=== PATIENT | male | born 1985 | race Caucasian/White ===

== ENCOUNTER 2016-05-30 10:27 | Emergency (ER) | payer OTHER ==
[2016-05-30 10:35] VITALS: RESP 16
[2016-05-30 11:56] LABS: COLOR YELLOW; LEUKOCYTE ESTERASE,URINE NEGATIVE (NEGATIVE); NITRITE,URINE NEGATIVE (NEGATIVE)
--- NOTE | 2016-05-30 11:57 | EDPHY ---
H & P Stated Complaint: swollen/pain testicle since sat. left side. Time Seen by Provider: 05/30/16 10:53 HPI/ROS: CHIEF COMPLAINT: Left testicular pain and swelling HISTORY OF PRESENT ILLNESS: This is a healthy 30-year-old male who presents with 3 and half days of left testicular pain. This began while skiing but he denies trauma. He had subjective fever on the day that the pain began. He also noticed that the left testicle was red and somewhat swollen. He took ibuprofen and felt better over the next 2 days. However, today the pain returned. Swelling and redness seems to have worsened. He denies dysuria, hematuria, urinary urgency and urinary frequency. He has not had back back or flank pain. No vomiting or diarrhea. He has no history of STD or HIV. He has had anal intercourse but no unprotected intercourse. REVIEW OF SYSTEMS: A ten point review of systems was performed and is negative with the exception of the items mentioned in the HPI. Source: Patient Exam Limitations: No limitations - Personal History Current Tetanus/Diphtheria Vaccine: Yes Current Tetanus Diphtheria and Acellular Pertussis (TDAP): Yes - Medical/Surgical History Hx Asthma: No Hx Chronic Respiratory Disease: No Hx Diabetes: No Hx Cardiac Disease: No Hx Renal Disease: No Hx Cirrhosis: No Hx Alcoholism: No Hx HIV/AIDS: No Hx Splenectomy or Spleen Trauma: No Other PMH: PMH: Lyme disease. PSH: hand tendon surgery, and fx - Social History Additional Social History: He works for [employer]. - Physical Exam Exam: General Appearance: Alert. Vital signs reviewed. Blood pressure 151/84. Eyes: Pupils equal and round, no conjunctival injection, no discharge. Anicteric. ENT, Mouth: Mucous membranes are moist, no oropharyngeal erythema or edema. Neck: No lymphadenopathy, supple. Respiratory: Lungs are clear to auscultation; no wheezes, rales, or rhonchi. Cardiovascular: Regular rate and rhythm; no murmur, rub, or gallop. Gastrointestinal: Abdomen is soft and nontender, no masses or organomegaly, bowel sounds normal. Genitalia: Normal circumcised male. No penile discharge or lesions. Left testicle is enlarged. The left epididymis is enlarged and somewhat tender to palpation. Right testicle is normal in size and without tenderness. No warmth of scrotal skin. Skin: Warm and dry, no rashes on exposed skin, normal color. Back: No CVAT. Neurological: Alert and oriented. Moving all four extremities easily and equally.. Psychiatric: Normal affect. Constitutional: Initial Vital Signs Temperature (C) 36.4 C 05/30/16 10:30 Heart Rate 97 05/30/16 10:30 Respiratory Rate 16 05/30/16 10:30 Blood Pressure 151/84 H 05/30/16 10:30 O2 Sat (%) 97 05/30/16 10:30 O2 Delivery Mode Room Air Allergies/Adverse Reactions: No Known Allergies Allergy (Unverified 05/30/16 10:30) Home Medications: Medication Instructions Recorded Doxycycline Hyclate [Doxycycline] 100 mg PO BID #13 cap 05/30/16 Medical Decision Making - Diagnostics Imaging: Testicular ultrasound reported to me by Dr. Trent Jon. Describes left epididymis measuring 5 cm x 2.5 cm with increased blood flow to the epididymis. Ultrasound findings are consistent with epididymitis, possibly orchitis. There is no drainable abscess and no mass. ED Course/Re-evaluation: Ultrasound indicates left epididymitis, possibly orchitis. Urine is negative for urinary tract infection. I am treating him with doxycycline and IM ceftriaxone with the thought that this will treat epididymitis/STD. Urine for GC and chlamydia sent. He is nontoxic appearing. Differential Diagnosis: I considered a differential diagnosis that includes but is not limited to epididymitis, orchitis, scrotal abscess, testicular torsion, testicular malignancy, and UTI. - Data Points Medications Given: Discontinued Medications Ceftriaxone Sodium (Rocephin Im Syringe) 250 mg IM EDNOW ONE PRN Reason: Protocol Stop: 05/30/16 12:37 Last Admin: 05/30/16 13:14 Dose: 250 mg Doxycycline Hyclate (Doxycycline Hyclate) 100 mg PO EDNOW ONE PRN Reason: Protocol Stop: 05/30/16 12:37 Last Admin: 05/30/16 12:45 Dose: 100 mg Departure - Departure Disposition: Home, Routine, Self-Care Clinical Impression: Epididymitis Condition: Good Instructions: Epididymo-Orchitis (ED) Additional Instructions: Try to elevate and support your scrotum whenever possible. Take the doxycycline twice daily until gone. The antibiotics that you are receiving will treat epididymitis and STD (if needed). Referrals: Nilson Basilio MD [Medical Doctor] - As per Instructions Anabela Moran MD [Medical Doctor] - As per Instructions Prescriptions: Doxycycline Hyclate [Doxycycline] 100 mg PO BID #13 cap
--- NOTE | 2016-05-30 11:57 | US ---
Testicular Sonogram Clinical Indications: Swollen painful enlarged left scrotal mass. Technique: Scrotal contents were imaged with the high-resolution transducer. Color and pulsed Doppl er/duplex were recorded on each side. Findings: Right testis measures 4.5 x 3.4 x 2.8 cm and left testis measures 4.8 x 4 x 2.[address] stes are homogeneous in echogenicity without intratesticular masses. Duplex/Doppler signals demonstra te abnormal increased vascular flow to a heterogenous and enlarged left epididymis measuring at least 5 x 2.5 cm, consistent with left epididymitis. Slight increased vascular flow to the left testes, hawley ggesting mild left orchitis. No definite hydrocele or varicocele. Impression: 1. Left epididymitis with heterogenous enlarged hypervascular left epididymis measuring at least 5 x 2.5 cm. 2. Mild increased flow to the left testes may represent mild left orchitis. 3. No drainable abscess. Findings and recommendations discussed with Emergency Department physician, Dr. Eli Arechiga, at 114 0 hours today. Final report concurs with initial preliminary interpretation.
[2016-05-30] MEDS ORDERED: CEFTRIAXONE IM 350 MG/ML SYRINGE IM ONE (12:36)
[2016-05-30] MEDS ORDERED: DOXYCYCLINE HYCLATE 100 MG CAP/TAB PO ONE (12:36)
[2016-05-30 13:38] VITALS: BP 134/86; PULSE 90; TEMP 97.7; O2SAT 98
[2016-06-01 08:24] LABS: CHLAMYDIA AMPLIFICATION GENPRB NEGATIVE (NEGATIVE)
== END 2016-05-30 13:40 | disposition home or self-care (01) ==
DX: N45.1 Epididymitis (principal)
CPT/HCPCS: J0696